=== PATIENT | female | born 1985 | race Caucasian/White ===

== ENCOUNTER 2025-04-24 20:53 | Emergency (ER) | payer OTHER ==
[~2025-04-24] VITALS: Ht 162.6 cm; Wt 98.5 kg
[2025-04-24] MEDS: NEOSPORIN TOP OINT 15GM TOP STA (22:21)
[2025-04-24 23:45] VITALS: BP 127/72; TEMP 98.4; O2SAT 98
== END 2025-04-24 23:45 | disposition home or self-care (01) ==
LOC: M ED 20:53
DX: S82.432A Displaced oblique fracture of shaft of left fibula, initial encounter for closed fracture (principal); M79.9 Soft tissue disorder, unspecified; V00.831A Fall from motorized mobility scooter, initial encounter; Y92.410 Unspecified street and highway as the place of occurrence of the external cause; Y93.89 Activity, other specified; Y99.9 Unspecified external cause status

== ENCOUNTER → 2025-04-26 | Outpatient (CLI) | payer OTHER | LOC: M SOG 06:56 | PROVIDERS: ATTEND Orthopaedic Surgery | DX: S82.832A Other fracture of upper and lower end of left fibula, initial encounter for closed fracture (principal) ==